=== PATIENT | female | born 1935 | race African-American/Black ===

== ENCOUNTER 2017-08-19 12:20 | Emergency (ER) | payer MEDICARE, OTHER ==
[~2017-08-19] VITALS: Ht 160 cm; Wt 59.0 kg
[~2017-08-19 12:20] MED LIST: ASPI-1159 PO; ATOR20TA65 PO; FURO80TA3 PO; IBUP-2029 PO
[2017-08-19 14:21] LABS: BASOPHILS % 0.3 % (0.0-2.0); EOSINOPHILS % 0.1 % (0.0-5.0); HEMATOCRIT. 41.4 % (36.0-48.0); HEMOGLOBIN. 13.7 g/dL (12.0-16.0); LYMPHOCYTES % 12.2 % (20.0-50.0); MEAN CORPUSCULAR HEMOGLOBIN 29.5 pg (28.0-32.0); MEAN CORPUSCULAR VOLUME 89.3 fL (81.0-99.0); MONOCYTES % 6.7 % (2.0-8.0); NEUTROPHILS % 80.7 % (40.0-76.0); PLATELET 233 x1000/uL (130-400); RED BLOOD CELL COUNT 4.63 mill/uL (4.2-5.4); RED CELL DISTRIBUTION WIDTH 13.7 % (11.6-14.6)
[2017-08-19 14:26] LABS: CHLORIDE 105 mEq/L (98-107)
[2017-08-19 14:28] LABS: INR 1.1; PROTHROMBIN TIME 11.4 sec (9.4-11.6)
[2017-08-19 15:09] LABS: CLARITY URINE CLOUDY (CLEAR); COLOR URINE YELLOW (YELLOW); KETONES URINE TRACE (NEGATIVE); LEUKOCYTE ESTERASE URINE NEGATIVE (NEGATIVE); NITRITE URINE NEGATIVE (NEGATIVE); OCCULT BLOOD URINE TRACE (NEGATIVE); PROTEIN URINE 1+ (NEGATIVE); SPECIFIC GRAVITY URINE 1.014 (1.005-1.030)
[2017-08-19 17:05] VITALS: BP 184/86
== END 2017-08-19 17:23 | disposition home or self-care (01) ==
LOC: ER 12:39
DX: I10 Essential (primary) hypertension (principal); R53.1 Weakness; R06.02 Shortness of breath; R79.9 Abnormal finding of blood chemistry, unspecified; R94.31 Abnormal electrocardiogram [ECG] [EKG]; I69.320 Aphasia following cerebral infarction; G93.89 Other specified disorders of brain; F03.90 Unspecified dementia, unspecified severity, without behavioral disturbance, psychotic disturbance, mood disturbance, and anxiety; J44.9 Chronic obstructive pulmonary disease, unspecified
CPT/HCPCS: 36415; 70450; 71045; 80053; 81003; 82962; 83605; 83880; 84484; 85025; 85610; 87040; 93005; 99285